=== PATIENT | female | born 1985 | race Caucasian/White ===

== ENCOUNTER 2022-06-10 22:58 | Emergency (ER) | payer OTHER | END 2022-06-11 00:57 | disposition home or self-care (01) | LOC: CSHERS 22:58 | DX: R51.9 Headache, unspecified (principal) | CPT/HCPCS: 70450; 96374; 96375 ==

== ENCOUNTER 2023-04-21 05:30 | Inpatient (IN) | payer OTHER ==
[2023-04-18 11:26] LABS: Hematocrit 26.1 % (34.9-44.5); Hemoglobin 8.1 g/dL (12.0-15.5); Platelet Count 322 10x3/uL (150-450)
[2023-04-18 11:45] LABS: HBSAg Index 0.12 S/CO (0-0.99); HIV (1/2) Antibody/Antigen Non-Reactive (NonReactive); HIV 1/2 INDEX 0.07 S/CO (<1.00); Hep B Surf Ag Non-Reactive S/CO (NonReactive)
[2023-04-18 11:46] LABS: Syphilis Antibody Nonreactive (Nonreactive); Syphilis Antibody Index 0.03 S/CO (<1.00 Non-Reactive)
[2023-04-21] MEDS ORDERED: Ondansetron PF 4 MG/2 ML Vial IVP PRN ×3 (06:35→10:10)
[2023-04-21] MEDS ORDERED: Misoprostol 200 MCG TAB PR PRN (06:35)
[2023-04-21] MEDS ORDERED: Bicitra 30 ML UDCUP PO PRN (06:35)
[2023-04-21] MEDS ORDERED: Famotidine/PF 20 mg/2ml Vial SLOW IVP PRN (06:35)
[2023-04-21] MEDS ORDERED: hydrALAZINE 20 MG/ML VIAL SLOW IVP PRN ×2 (06:35→07:30)
[2023-04-21] MEDS ORDERED: Tranexamic Acid 1,000 MG/10 ML VIAL IVP PRN (06:35)
[2023-04-21] MEDS ORDERED: Methylergonovine 0.2 MG/ML VIAL IM PRN (06:35)
[2023-04-21] MEDS ORDERED: CEFAZOLIN 2 GM in Sodium Chloride 0.9% 100 ML IVPB SCH (06:35)
[2023-04-21] MEDS ORDERED: Oxytocin 30 units/NS 500 ML 500 ML IV SCH (06:35)
[2023-04-21] MEDS ORDERED: Lactated Ringer's 1,000 ML IV SCH (06:35)
[2023-04-21] MEDS ORDERED: Promethazine HCl 25 MG/ML VIAL IM PRN ×2 (06:35→10:10)
[2023-04-21] MEDS ORDERED: Diphenoxylate HCl/Atropine Tablet PO PRN ×2 (06:35)
[2023-04-21] MEDS ORDERED: fentaNYL 50 mcg/mL 1 mL Vial ONE (06:52)
[2023-04-21] MEDS ORDERED: Ondansetron PF 4 MG/2 ML Vial ONE (06:52)
[2023-04-21] MEDS ORDERED: Dexamethasone 4 mg/ml Vial ONE (06:52)
[2023-04-21] MEDS ORDERED: Oxytocin 10 UNITS/ML VIAL ONE (06:52)
[2023-04-21] MEDS ORDERED: Morphine PF 10 MG/10 ML VIAL ONE (06:52)
[2023-04-21] MEDS ORDERED: PHENYLEPHRINE-NS 100 MCG/ML 10 ML SYRINGE ONE ×2 (06:52→08:10)
[2023-04-21] MEDS ORDERED: Phenylephrine 40 MG/NS 250 ML 500 ML ONE (06:53)
[2023-04-21 07:09] VITALS: BMI 30.2
[2023-04-21] MEDS ORDERED: Simethicone Chewable 80 MG TAB PO PRN (07:30)
[2023-04-21] MEDS ORDERED: Boostrix 0.5 ML (Tdap) VIAL (>/=7 yrs of age) IM ONE (07:30)
[2023-04-21] MEDS ORDERED: diphenhydrAMINE 25 MG CAP PO PRN (07:30)
[2023-04-21] MEDS ORDERED: Lanolin Ointment 7 GM TUBE TOP PRN (07:30)
[2023-04-21] MEDS ORDERED: HYDROcodone/Acetaminophen 5/325 mg Tablet PO PRN ×2 (07:30)
[2023-04-21] MEDS ORDERED: Bisacodyl 10 MG SUPP PR PRN (07:30)
[2023-04-21] MEDS ORDERED: ePHEDrine Sulfate 50 MG/10 ML VIAL ONE (08:13)
[2023-04-21] MEDS ORDERED: Promethazine HCl 25 MG/ML VIAL ONE (08:14)
[2023-04-21] MEDS ORDERED: Meperidine HCl/PF 25 MG/ML VIAL SLOW IVP PRN (10:10)
[2023-04-21] MEDS ORDERED: fentaNYL 50 mcg/mL 1 mL Vial SLOW IVP PRN (10:10)
[2023-04-21] MEDS ORDERED: Promethazine HCl 25 MG SUPP PR PRN (10:10)
[2023-04-21] MEDS ORDERED: Moisturizing Cream (Eucerin) 113 GM JAR TOP PRN (10:10)
[2023-04-21] MEDS ORDERED: Naloxone HCl 0.4 mg/ml Vial IV PRN (10:10)
[2023-04-21] MEDS ORDERED: Naloxone HCl 0.4 mg/ml Vial IVP PRN ×2 (10:10)
[2023-04-21] MEDS ORDERED: HYDROmorphone 0.5 MG/0.5 ML SYRINGE SLOW IVP PRN (10:10)
[2023-04-21] MEDS ORDERED: diphenhydrAMINE 50 MG/ML VIAL IVP PRN (10:10)
[2023-04-21] MEDS ORDERED: Ketorolac Tromethamine 30 MG/ML VIAL IVP SCH (10:15)
[2023-04-21] MEDS ORDERED: Communication Order-Pharmacy FS SCH (10:15)
[2023-04-21] MEDS: Docusate 100 MG CAP PO SCH ×2 (11:29→21:21)
[2023-04-21] MEDS: Ferrous Sulfate 325 MG TAB PO SCH ×2 (11:29→21:21)
[2023-04-21] MEDS: Prenatal Vitamin 1 TAB PO SCH (11:29)
[2023-04-21] MEDS: Ketorolac Tromethamine 30 MG/ML VIAL IVP PRN ×2 (17:41→23:45)
[2023-04-22] MEDS ORDERED: HYDROcodone/Acetaminophen 5/325 mg Tablet PO PRN (03:06)
[2023-04-22 04:21] LABS: Hematocrit 19.8 % (34.9-44.5); Hemoglobin 6.1 g/dL (12.0-15.5); Mean Corpuscular HGB CONC 30.8 g/dL (32.0-36.0); Mean Corpuscular Hemoglobin 24.1 pg (27.0-33.0); Mean Corpuscular Volume 78.3 fl (81.6-98.3); Platelet Count 213 10x3/uL (150-450); RBC Distribution Width 15.9 % (11.5-14.5); Red Blood Cell (RBC) Count 2.53 10x6/uL (3.90-5.03); White Blood Cell (WBC) Count 9.1 10x3/uL (3.5-10.5)
[2023-04-22] MEDS: Ketorolac Tromethamine 30 MG/ML VIAL IVP PRN (05:39)
[2023-04-22] MEDS: Docusate 100 MG CAP PO SCH ×2 (07:58→20:51)
[2023-04-22] MEDS: Ferrous Sulfate 325 MG TAB PO SCH ×2 (07:58→20:53)
[2023-04-22] MEDS: Prenatal Vitamin 1 TAB PO SCH (07:59)
[2023-04-22] MEDS ORDERED: Acetaminophen 500 MG TAB PO SCH (08:00)
[2023-04-22] MEDS ORDERED: Iron Sucrose Complex 500 MG in Sodium Chloride 0.9% 250 ML 250 ML IVPB SCH (08:00)
[2023-04-22] MEDS: Ibuprofen 800 MG TAB PO SCH ×2 (13:49→22:01)
[2023-04-22] MEDS: HYDROcodone/Acetaminophen 5/325 mg Tablet PO PRN ×2 (14:03→20:51)
[2023-04-23 04:27] LABS: Hematocrit 22.5 % (34.9-44.5); Hemoglobin 6.8 g/dL (12.0-15.5); Mean Corpuscular HGB CONC 30.2 g/dL (32.0-36.0); Mean Corpuscular Hemoglobin 24.3 pg (27.0-33.0); Mean Corpuscular Volume 80.4 fl (81.6-98.3); Mean Platelet Volume 10.6 fl (7.4-10.4); Platelet Count 246 10x3/uL (150-450); RBC Distribution Width 15.9 % (11.5-14.5); White Blood Cell (WBC) Count 9.7 10x3/uL (3.5-10.5)
[2023-04-23] MEDS: Ibuprofen 800 MG TAB PO SCH (05:11)
[2023-04-23 05:47] VITALS: TEMP 97.9
[2023-04-23] MEDS: HYDROcodone/Acetaminophen 5/325 mg Tablet PO PRN ×2 (06:17→10:01)
[2023-04-23 07:45] VITALS: BP 114/53
[2023-04-23] MEDS: Prenatal Vitamin 1 TAB PO SCH (08:03)
[2023-04-23] MEDS: Docusate 100 MG CAP PO SCH (08:03)
[2023-04-23] MEDS: Ferrous Sulfate 325 MG TAB PO SCH (08:04)
== END 2023-04-23 11:45 | disposition home or self-care (01) | DRG 788 ==
LOC: CSHLD 05:30 → CSHPP 10:40
PROVIDERS: ADMIT Obstetrics & Gynecology; ATTEND Obstetrics & Gynecology
PROC: 10D00Z1 Extraction of Products of Conception, Low, Open Approach (ICD-10-PCS; principal; 2023-04-21)
PROC: 3E033XZ Introduction of Vasopressor into Peripheral Vein, Percutaneous Approach (ICD-10-PCS; 2023-04-21)
PROC: 30233N1 Transfusion of Nonautologous Red Blood Cells into Peripheral Vein, Percutaneous Approach (ICD-10-PCS; 2023-04-22)
DX: O34.211 Maternal care for low transverse scar from previous cesarean delivery (principal); O99.02 Anemia complicating childbirth; Z37.0 Single live birth; Z3A.39 39 weeks gestation of pregnancy; O09.523 Supervision of elderly multigravida, third trimester
CPT/HCPCS: 36415; 36430; 51702; 85014; 85018; 85027; 85049; 86780; 86850; 86900; 86901; 87340; 87389; J1100; J1756; J1885; J2274; J2405; J2550; J2590; J3010; J7050; P9016; S0028